=== PATIENT | male | born 1950 | race Caucasian/White ===

== ENCOUNTER → 2016-02-26 | Outpatient (CLI) | payer OTHER ==
[2016-02-26 13:14] LABS: ESTIMATED AVERAGE GLUCOSE 151 mg/dl; HA1C FLAG Normal (Normal)
[2016-02-26 13:39] LABS: ALT/SGPT 26 U/L (12-78); AST/SGOT 19 U/L (15-37); BLOOD UREA NITROGEN 16 mg/dl (7-18); BUN/CREATININE RATIO 15.7 (10-20); CALCIUM 9.3 mg/dl (8.5-10.1); CARBON DIOXIDE 25 mmol/L (21-32); CHLORIDE 105 mmol/L (98-107); CREATININE 0.99 mg/dl (0.60-1.40); GLUCOSE 118 mg/dl (70-99); POTASSIUM 3.9 mmol/L (3.5-5.1); SODIUM 142 mmol/L (136-145)
[2016-02-26 13:46] LABS: ALB/GLOB RATIO 1.2 (0.9-2); ALKALINE PHOSPHATASE 73 U/L (45-117); CHOLESTEROL 220 mg/dl (0-200); CHOLESTEROL/HDL RATIO 3.3; HDL CHOLESTEROL 66 mg/dl; TRIGLYCERIDES 116 mg/dl (0-150); VERY LOW DENSITY LIPOPROT CALC 23 mg/dl
== END | disposition home or self-care (01) ==
LOC: C.LABBFT 07:46
PROVIDERS: ATTEND Family Medicine
DX: I10 Essential (primary) hypertension (principal); R97.20 Elevated prostate specific antigen [PSA]; E11.9 Type 2 diabetes mellitus without complications

== ENCOUNTER → 2016-08-28 | Outpatient (CLI) | payer OTHER ==
[2016-08-28 13:13] LABS: ESTIMATED AVERAGE GLUCOSE 157 mg/dl; HA1C FLAG Normal (Normal)
[2016-08-28 13:15] LABS: ALT/SGPT 24 U/L (12-78); BLOOD UREA NITROGEN 22 mg/dl (7-18); CALCIUM 9.2 mg/dl (8.5-10.1); CARBON DIOXIDE 27 mmol/L (21-32); CHLORIDE 106 mmol/L (98-107); CHOLESTEROL 208 mg/dl (0-200); GLUCOSE 125 mg/dl (70-99); POTASSIUM 4.5 mmol/L (3.5-5.1); SODIUM 139 mmol/L (136-145); TRIGLYCERIDES 99 mg/dl (0-150); VERY LOW DENSITY LIPOPROT CALC 20 mg/dl
[2016-08-28 13:20] LABS: ALB/GLOB RATIO 1.2 (0.9-2); ALKALINE PHOSPHATASE 69 U/L (45-117); AST/SGOT 25 U/L (15-37); CHOLESTEROL/HDL RATIO 3.4; HDL CHOLESTEROL 61 mg/dl
--- NOTE | 2016-09-09 10:39 | CODING QUERY MEDICAL NECESSITY ---
SUPPORTING DIAGNOSIS NEEDED A supporting diagnosis is required for the test/procedure performed on this patient in order for us to be reimbursed by the patient's insurance. Please provide a supporting diagnosis for the following test/procedure listed below next to the test name along with your signature. *If there is no additional diagnosis for this patient that would support the following test/procedure please document that below next to the test/procedure. Test(s)/Procedure(s) that require a supporting diagnosis: * HEMOGLOBIN A1C DIAGNOSIS: Provider Signature: Date: Thank you Dai Corona [employer] Once completed, please kindly fax back to [phone] For questions please call [phone]
== END | disposition home or self-care (01) ==
LOC: C.LABBFT 07:38
PROVIDERS: ATTEND Family Medicine
DX: I10 Essential (primary) hypertension (principal); E78.00 Pure hypercholesterolemia, unspecified; R97.20 Elevated prostate specific antigen [PSA]; E11.9 Type 2 diabetes mellitus without complications

== ENCOUNTER → 2017-03-30 | Outpatient (CLI) | payer OTHER ==
[2017-03-30 13:03] LABS: ALBUMIN 3.8 gm/dl (3.4-5.0); ALT/SGPT 26 U/L (12-78); AST/SGOT 21 U/L (15-37); BLOOD UREA NITROGEN 16 mg/dl (7-18); CARBON DIOXIDE 28 mmol/L (21-32); CREATININE 1.05 mg/dl (0.60-1.40); GLUCOSE 121 mg/dl (70-99); SODIUM 137 mmol/L (136-145)
[2017-03-30 13:08] LABS: HEMOGLOBIN A1C 7.1 % (4.5-5.6)
[2017-03-30 13:10] LABS: ALKALINE PHOSPHATASE 83 U/L (45-117); CHOLESTEROL 215 mg/dl (0-200); LDL CHOLESTEROL (DIRECT) 143 mg/dl; TOTAL PROTEIN 7.6 gm/dl (6.4-8.2)
== END | disposition home or self-care (01) ==
LOC: C.LABBFT 08:41
PROVIDERS: ATTEND Family Medicine
DX: I10 Essential (primary) hypertension (principal); E78.00 Pure hypercholesterolemia, unspecified; R97.20 Elevated prostate specific antigen [PSA]; E11.9 Type 2 diabetes mellitus without complications

== ENCOUNTER 2018-09-22 18:01 | Inpatient (IN) ==
[2018-09-22] MEDS ORDERED: SODIUM CHLORIDE 0.9% 1000ML 2,000 ML IV ONE (18:15)
[2018-09-22] MEDS ORDERED: cefTRIAXone SODIUM 1,000 MG/50 ML BAG IV STA (18:15)
[2018-09-22] MEDS ORDERED: ACETAMINOPHEN 325 MG TAB PO STA (18:15)
--- NOTE | 2018-09-22 18:34 | XRay Report ---
XR chest 1V portable HISTORY: 68 years-old Male Sepsis acute sepsis COMPARISON: Chest radiograph 09/15/2018 TECHNIQUE: Portable AP view of the chest FINDINGS: Cardiomediastinal and hilar silhouettes are within normal limits. No pneumothorax, pleural effusion, focal airspace consolidation or overt pulmonary edema. Degenerative changes of the shoulders and spin e. IMPRESSION: No acute process. The above report was generated using voice recognition software. It may contain grammatical, syntax o r spelling errors. Electronically signed by: Aston Johnson M.D. 09/22/2018 6:32 PM
[2018-09-22 18:40] LABS: Basophils # (auto) 0.01 K/uL (0-0.2); Basophils % (auto) 0.1 %; Eosinophils # (auto) 0.03 K/uL (0-0.5); Eosinophils % (auto) 0.3 %; Hematocrit (blood only) 30.8 % (42-52); Hemoglobin 10.5 g/dL (14.0-18.0); Immature Granulocytes # (auto) 0.04 K/uL (0.00-0.02); Immature Granulocytes % (auto) 0.3 %; Lymphocytes # (auto) 0.64 K/uL (1.2-3.4); Lymphocytes % (auto) 5.6 %; Mean Corpuscular Hgb Conc 34.1 g/dL (32-36); Mean Corpuscular Volume 94.8 fL (80-100); Mean Platelet Volume 9.9 fL (7.4-10.4); Monocytes # (auto) 0.55 K/uL (0.11-0.59); Monocytes % (auto) 4.8 %; Neutrophils # (auto) 10.26 K/uL (1.4-6.5); Neutrophils % (auto) 88.9 %; Platelet Count 166 K/uL (130-400); RDW Coefficient of Variation 12.7 % (11.5-14.5); RDW Standard Deviation 44.1 fL (36.4-46.3); Red Blood Count 3.25 M/uL (4.7-6.1); White Blood Count 11.53 K/uL (4.8-10.8)
[2018-09-22 18:52] LABS: INR 1.1 (0.9-1.1); Partial Thromboplastin Time 27.8 Seconds (21.0-31.0); Prothrombin Time 10.9 Seconds (9.0-12.0)
[2018-09-22 19:02] LABS: Albumin Level 3.5 gm/dl (3.4-5.0); BUN Creatinine Ratio 17.6 (10-20); Calcium 8.8 mg/dl (8.5-10.1); Creatinine Clr Calc Pharmacy 39.6 ml/min; Est GFR (African American) 50.2; Est GFR (Non-African American) 43.3; Potassium 4.1 mmol/L (3.5-5.1)
[2018-09-22 19:04] LABS: Albumin Globulin Ratio 0.8 (0.9-2); Bilirubin,Total 0.7 mg/dl (0.2-1); Globulin 4.3 gm/dl (2.5-4.0); Total Protein 7.8 gm/dl (6.4-8.2)
[2018-09-22 19:06] LABS: Appearance Urine Turbid (Clear); Bacteria Urine Automated 4+ (Negative); Bilirubin Urine Negative (Negative); Blood Urine 3+ (Negative); Color Urine Orange; Epithelial Cell Urine Auto >30 /lpf (0-5); Glucose Urine UA Negative (Negative); Ketones Urine Negative (Negative); Leukocyte Esterase Urine 3+ (Negative); Nitrite Urine Positive (Negative); Protein Urine 2+ (Negative); RBC Urine Automated >30 /hpf (0-4); Urobilinogen Urine Negative (Negative); WBC Urine Automated >30 /hpf (0-5)
[2018-09-22 19:30] LABS: Cast Urine Automated 0 /lpf (0-5)
[2018-09-22] MEDS ORDERED: CEFEPIME 1,000 MG in SYRINGE 0 ML IV STA (20:06)
--- NOTE | 2018-09-22 21:13 | History & Physical Report ---
Date of Service September 22, 2018 Assessment & Plan (1) UTI (urinary tract infection): 68 y/o M Hx HTN, DM II, BPH. The pt has had dysuria and retention since February 2018. He states he has been putting off a TURP which is now scheduled for 09/27. On 09/09 he developed urinary obstruction necessitating Kim placement and on 09/15 he developed a UTI. He completed a course of antibiotics, however, the prior evening he developed a fever and rigors. He was instructed to attend the hospital to receive IV antibiotics by his urologist, who requested coverage for pseudomonas. On review of cultures from 09/15, Gram+ cocci were reported. Specificity and sensitivity are pending. 1) UTI - SIRS - placed on Cefepime initially. Vanc added due to culture results 2) DM II - placed on a SS 3) HTN - cont Lisinopril 4) BPH - consult urology - due for TURP in the coming week Full code SCDs Total time for this admit including review of labs, meds, imaging, records - discussion with pt and ER attending - 35 min Present on Admission?: Yes History of Present Illness Chief Complaint: UTI - recurrent Primary Care Provider: Prateek Herrera 68 y/o M Hx HTN, DM II, BPH. The pt has had dysuria and retention since February 2018. He states he has been putting off a TURP which is now scheduled for 09/27. On 09/09 he developed urinary obstruction necessitating Kim placement and on 09/15 he developed a UTI. He completed a course of antibiotics, however, the prior evening he developed a fever and rigors. He was instructed to attend the hospital to receive IV antibiotics by his urologist, who requested coverage for pseudomonas. On review of cultures from 09/15, Gram+ cocci were reported. Specificity and sensitivity are pending. 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 Family: Noncontributory Allergies Allergy/AdvReac Type Severity Reaction Status Date / Time prednisone AdvReac Unknown light Verified 09/22/18 19:13 headed, photophobia Home Medications Home Medications Medication Instructions Recorded Confirmed Type dutasteride 0.5 mg PO QDL 09/14/18 09/22/18 History ferrous gluconate 236 mg PO QAM 09/14/18 09/22/18 History lisinopril 10 mg PO QAM 09/14/18 09/22/18 History metformin 500 mg PO QDD 09/14/18 09/22/18 History phenazopyridine [Azo Urinary Pain 199 mg PO TID PRN 09/14/18 09/22/18 History Relief] tamsulosin [Flomax] 0.4 mg PO QPM 09/14/18 09/22/18 History Past Med/Surg History Medical History Anemia BPH (benign prostatic hyperplasia) Diabetes mellitus, type 2 NIDDM Kim catheter in place inserted - 09/09/2018; had cysto 09/13/2018; and then replaced; will have voiding trial 09/20/2018 - if failed then will be in until surgery date Gout Hypertension Surgical History History of colonoscopy Hx of dislocation of ankle right ankle - sedated for procedure Hx of tonsillectomy Hx of wisdom tooth extraction Social History Preferred Language: Setswana Communication Ability: Effective Beliefs That Will Affect Care: None Current Living Situation: Spouse Feels Safe at Home: Yes Smoking Status: Never smoker Second Hand Exposure: No Hx Alcohol Use: No Hx Substance Use: No Review of Systems Review of Systems: Gen: Fevers and rigors since prior evening ENT: Denies congestion, throat pain, hearing loss Eyes: Denies acute visual changes CV: Denies CP, palpitations Pulmonary: Denies SOB, cough, wheezing GI: Denies N/V, diarrhea, constipation Neuro: Denies acute or unilateral weakness, acute gait impairment, headache or acute visual changes Musculoskeletal: Denies joint pain, inflammation Endocrine: Denies polydipsia, polyuria Skin: Denies acute rashes or ulcers Physical Exam Physical Exam: General: AAO x 3, no distress ENT: No erythema or exudates, no thrush Eyes: ENRIQUE, EOMI Head and neck: Normocephalic, atraumatic, No JVD, neck is supple. Chest/heart: Nontender, S1,2, RRR, no murmurs, no gallops Lungs: CTAB, no wheezing or crackles Abdomen: Nontender, nondistended, BS+ Neuro: AAO x 3, speech is clear, no unilateral weakness or loss of sensation, coordination intact Musculoskeletal: No joint inflammation, muscle tenderness, FROM Skin: No acute rashes or ulcers Extremities: No clubbing, cyanosis, edema Results & Data Vital Signs (Past 12 Hours) Vital Signs Temp Pulse Pulse Resp BP BP Pulse Ox 09/22/18 20:33 81 21 143/68 H 97 09/22/18 20:18 99.1 F 09/22/18 20:15 85 15 133/66 97 09/22/18 20:00 79 19 139/61 96 09/22/18 19:45 81 21 134/64 97 09/22/18 19:30 84 20 146/68 H 98 09/22/18 19:15 86 20 144/67 H 98 09/22/18 19:00 90 22 138/68 96 09/22/18 18:45 100 H 23 146/75 H 96 09/22/18 18:38 98 H 21 156/73 H 95 09/22/18 18:05 101.3 F H 110 H 20 151/70 H 96 PG Care Time/CCT Total # of Minutes Spent Total Time Spent with Patient: Total time spent is greater than 50% in coordination of care (as documented) at patient's floor/unit and/or counseling patient:
[2018-09-22] MEDS ORDERED: VANCOMYCIN CONSULT ACTIVE PRN ×2 (21:25→22:58)
[2018-09-22] MEDS ORDERED: VANCOMYCIN HCL 1,250 MG in SODIUM CHLORIDE 0.9% 500 ML IV ONE (21:25)
--- NOTE | 2018-09-22 21:59 | Emergency Department Note ---
Entered by Porsche Dominguez acting as a scribe for History of Present Illness General Chief complaint: Urinary Symptoms Stated complaint: FEVER, URINARY SYMPTOMS, REFERRED BY UROLOGIST Source: patient Mode of arrival: ambulatory Limitations: no limitations History of Present Illness Onset (ago): day(s) 1 Location: pelvis (urinary system) Radiation: non-radiation Pain Consistency: + constant Relieved By: + none Exacerbated By: + none Associated symptoms: + other (-abdominal pain, -diarrhea); no nausea/vomiting Treatments prior to arrival: other (Azo) The patient is a 68 year old male who presents to the ED with complaints of urinary symptoms. He states he has a catheter in place for TURP surgery next week due to an enlarged prostate. The catheter has been in place since September 09. Yesterday around 1800, he developed a fever. He has been alternating Tylenol and Advil. He called Dr. Ornelas office and they referred him here to the ED. He complains of dysuria and states his urine has been orange in color. He notes he is currently taking Azo. He denies any abdominal pain, nausea, vomiting or diarrhea. Patient does admit to having shaking chills at home. No chest pain or shortness of breath. Home Medications Home Medications Medication Instructions Recorded Confirmed Type dutasteride 0.5 mg PO QDL 09/14/18 09/22/18 History ferrous gluconate 236 mg PO QAM 09/14/18 09/22/18 History lisinopril 10 mg PO QAM 09/14/18 09/22/18 History metformin 500 mg PO QDD 09/14/18 09/22/18 History phenazopyridine [Azo Urinary Pain 199 mg PO TID PRN 09/14/18 09/22/18 History Relief] tamsulosin [Flomax] 0.4 mg PO QPM 09/14/18 09/22/18 History Allergies Allergy/AdvReac Type Severity Reaction Status Date / Time prednisone AdvReac Unknown light Verified 09/22/18 19:13 headed, photophobia Past Med/Surg History Medical History Anemia BPH (benign prostatic hyperplasia) Diabetes mellitus, type 2 NIDDM Kim catheter in place inserted - 09/09/2018; had cysto 09/13/2018; and then replaced; will have voiding trial 09/20/2018 - if failed then will be in until surgery date Gout Hypertension Surgical History History of colonoscopy Hx of dislocation of ankle right ankle - sedated for procedure Hx of tonsillectomy Hx of wisdom tooth extraction Social History Preferred Language: Vietnamese Communication Ability: Effective Beliefs That Will Affect Care: None Current Living Situation: Spouse Feels Safe at Home: Yes Smoking Status: Never smoker Second Hand Exposure: No Hx Alcohol Use: No Hx Substance Use: No Review of Systems See HPI for pertinent positives & negatives. and A total of 10 systems reviewed and were otherwise negative Physical Exam Vital Signs Vital Signs - 24 hr 09/22/18 18:05 09/22/18 18:38 09/22/18 18:45 Temperature 38.5 C H Temperature Source Oral Sepsis Recent Fever Within 48 Hours No Sepsis New/Unexplained Change in Mental Status No Sepsis Action Taken by Nursing No Action Required Pulse Rate 110 H 100 H Pulse Rate [Finger] 98 H Pulse Rate from SpO2 Sensor 100 H Respiratory Rate 20 21 23 Respiratory Depth Blood Pressure 151/70 H 146/75 H Blood Pressure [Right Arm] 156/73 H Blood Pressure Mean 97 98 Blood Pressure Mean [Right Arm] 100 Pulse Oximetry 96 95 96 Oxygen Delivery Method Room Air Room Air Room Air 09/22/18 19:00 09/22/18 19:15 09/22/18 19:30 Temperature Temperature Source Sepsis Recent Fever Within 48 Hours Sepsis New/Unexplained Change in Mental Status Sepsis Action Taken by Nursing Pulse Rate 90 86 84 Pulse Rate [Finger] Pulse Rate from SpO2 Sensor 90 86 84 Respiratory Rate 22 20 20 Respiratory Depth Blood Pressure 138/68 144/67 H 146/68 H Blood Pressure [Right Arm] Blood Pressure Mean 91 92 94 Blood Pressure Mean [Right Arm] Pulse Oximetry 96 98 98 Oxygen Delivery Method Room Air Room Air Room Air 09/22/18 19:45 09/22/18 20:00 09/22/18 20:15 Temperature Temperature Source Sepsis Recent Fever Within 48 Hours Sepsis New/Unexplained Change in Mental Status Sepsis Action Taken by Nursing Pulse Rate 81 79 85 Pulse Rate [Finger] Pulse Rate from SpO2 Sensor 81 79 84 Respiratory Rate 21 19 15 Respiratory Depth Blood Pressure 134/64 139/61 133/66 Blood Pressure [Right Arm] Blood Pressure Mean 87 87 88 Blood Pressure Mean [Right Arm] Pulse Oximetry 97 96 97 Oxygen Delivery Method Room Air Room Air Room Air 09/22/18 20:18 09/22/18 20:33 09/22/18 21:00 Temperature 37.3 C Temperature Source Oral Sepsis Recent Fever Within 48 Hours Sepsis New/Unexplained Change in Mental Status Sepsis Action Taken by Nursing Pulse Rate Pulse Rate [Finger] 81 Pulse Rate from SpO2 Sensor 82 Respiratory Rate 21 Respiratory Depth Normal Blood Pressure 126/66 Blood Pressure [Right Arm] 143/68 H Blood Pressure Mean 86 Blood Pressure Mean [Right Arm] 93 Pulse Oximetry 97 96 Oxygen Delivery Method Room Air Room Air 09/22/18 21:30 Temperature Temperature Source Sepsis Recent Fever Within 48 Hours Sepsis New/Unexplained Change in Mental Status Sepsis Action Taken by Nursing Pulse Rate 76 Pulse Rate [Finger] Pulse Rate from SpO2 Sensor 76 Respiratory Rate 24 Respiratory Depth Blood Pressure 135/70 Blood Pressure [Right Arm] Blood Pressure Mean 91 Blood Pressure Mean [Right Arm] Pulse Oximetry 97 Oxygen Delivery Method Room Air GENERAL: Patient is alert, standing in room while getting dressed, talking in full sentences, non-toxic EYE EXAM: normal conjunctiva OROPHARYNX: no exudate, no erythema, lips, buccal mucosa, and tongue normal and mucous membranes are moist NECK: supple, no nuchal rigidity, no adenopathy, non-tender LUNGS: Clear to auscultation. Normal chest wall mechanics HEART: Tachycardic heart rate, no murmurs, S1 normal and S2 normal ABDOMEN: abdomen soft, tenderness in suprapubic region, normo-active bowel s ounds, no masses, no rebound or guarding. BACK: Back is symmetrical on inspection and there is no deformity, no midline tenderness, no CVA tenderness. SKIN: no rashes and no bruising UPPER EXTREMITIES: upper extremities are grossly normal. LOWER EXTREMITIES: No pitting edema. NEURO EXAM: Normal sensorium, cranial nerves II-XII grossly intact, normal speech, no gross weakness of arms, no gross weakness of legs. Gross sensation intact. Course ED COURSE: Vital signs were reviewed and showed the patient is hypertensive and tachycardic . The patients medical record was reviewed The above diagnostic studies were performed and reviewed. ED treatments and interventions as stated above. 1810: The patient was evaluated in room C2. A complete history and physical examination was performed. 1944: I discussed the patients case with Dr. Schneider, [facility]. He recommends the patient be further evaluated by the hospital medicine team. 2014: I made Dr. Trujillo, [facility] Hospitalist, aware of the patient. The patient will be further evaluated. 2024: Upon reevaluation, the patient is resting comfortably. I discussed my findings with the patient and he understands and agrees with the treatment plan. Based on the patients age, coexisting illnesses, exam and lab findings the decision to treat as an inpatient was made. The patient remained stable while under my care. The patient will be evaluated for further management. Administered Medications Vancomycin HCl 1,250 mg/ (Sodium Chloride) 525 mls @ 200 mls/hr IV NOW ONE; Protocol Stop: 09/23/18 00:02 Last Admin: 09/22/18 21:48 Dose: 200 mls/hr Documented by: [id number] Discontinued Medications Acetaminophen (Tylenol) 650 mg PO NOW STA Stop: 09/22/18 18:16 Last Admin: 09/22/18 18:34 Dose: 650 mg Documented by: [id number] Ceftriaxone Sodium (Rocephin) 1,000 mg in 50 mls @ 100 mls/hr IV NOW STA Stop: 09/22/18 18:44 Last Infusion: 09/22/18 19:05 Dose: 0 mls/hr Documented by: [id number] Admin: 09/22/18 18:35 Dose: 100 mls/hr Documented by: [id number] Sodium Chloride (Nss 1000ml) 2,000 mls @ 999 mls/hr IV .Q2H1M ONE Stop: 09/22/18 20:15 Last Infusion: 09/22/18 20:26 Dose: 0 mls/hr Documented by: [id number] Admin: 09/22/18 18:25 Dose: 999 mls/hr Documented by: [id number] Cefepime HCl 1,000 mg/ Syringe 11.3 mls @ 5.5 mls/min IV NOW STA; Protocol Stop: 09/22/18 20:08 Last Admin: 09/22/18 20:34 Dose: 5.5 mls/min Documented by: [id number] Medical Decision Making Differential Diagnosis Differential diagnoses includes but is not limited to gastritis, peptic ulcer disease, GERD, gallbladder disease, pancreatitis, small bowel obstruction, acute coronary syndrome, pericarditis, ischemic bowel, irritable bowel disease, irritable bowel syndrome, appendicitis, diverticulitis, malignancy, hernia, urinary tract infection, torsion, perforation, trauma, infectious. Medical Records Attestation: I reviewed the patient's medical records. Home Medications Current Medication List: was personally reviewed by me Laboratory Data Attestation: I reviewed the patient's lab results. Result diagrams: 09/22/18 18:27 09/22/18 18:27 Lab Results 09/22/18 09/22/18 09/22/18 Range/Units 18:27 18:27 18:27 WBC 11.53 H (4.8-10.8) K/uL RBC 3.25 L (4.7-6.1) M/uL Hgb 10.5 L (14.0-18.0) g/dL Hct 30.8 L (42-52) % MCV 94.8 (80-100) fL MCH 32.3 (25-34) pg MCHC 34.1 (32-36) g/dL RDW Std Deviation 44.1 (36.4-46.3) fL RDW Coeff of Percy 12.7 (11.5-14.5) % Plt Count 166 (130-400) K/uL MPV 9.9 (7.4-10.4) fL Immature Gran % (Auto) 0.3 % Neut % (Auto) 88.9 % Lymph % (Auto) 5.6 % [place] % (Auto) 4.8 % Eos % (Auto) 0.3 % Baso % (Auto) 0.1 % Immature Gran # (Auto) 0.04 H (0.00-0.02) K/uL Neut # (Auto) 10.26 H (1.4-6.5) K/uL Lymph # (Auto) 0.64 L (1.2-3.4) K/uL [place] # (Auto) 0.55 (0.11-0.59) K/uL Eos # (Auto) 0.03 (0-0.5) K/uL Baso # (Auto) 0.01 (0-0.2) K/uL PT 10.9 (9.0-12.0) Seconds INR 1.1 (0.9-1.1) APTT 27.8 (21.0-31.0) Seconds PTT Ratio 1.0 Sodium 134 L (136-145) mmol/L Potassium 4.1 (3.5-5.1) mmol/L Chloride 101 (98-107) mmol/L Carbon Dioxide 28 (21-32) mmol/L Anion Gap 5.0 (3-11) BUN 28 H (7-18) mg/dl Creatinine 1.61 H (0.6-1.4) mg/dl Est Cr Clr Drug Dosing 39.6 ml/min Est GFR ( Amer) 50.2 Est GFR (Non-Af Amer) 43.3 BUN/Creatinine Ratio 17.6 (10-20) Glucose 227 H (70-99) mg/dl Lactate (0.4-2.0) mmol/L Calcium 8.8 (8.5-10.1) mg/dl Total Bilirubin 0.7 (0.2-1) mg/dl AST 15 (15-37) U/L ALT 16 (12-78) U/L Alkaline Phosphatase 99 (45-117) U/L Total Protein 7.8 (6.4-8.2) gm/dl Albumin 3.5 (3.4-5.0) gm/dl Globulin 4.3 H (2.5-4.0) gm/dl Albumin/Globulin Ratio 0.8 L (0.9-2) Urine Color Urine Appearance (Clear) Urine pH (4.5-7.5) Ur Specific [place] (1.000-1.030) Urine Protein (Negative) Urine Glucose (UA) (Negative) Urine Ketones (Negative) Urine Blood (Negative) Urine Nitrite (Negative) Urine Bilirubin (Negative) Urine Urobilinogen (Negative) Ur Leukocyte Esterase (Negative) Urine WBC (Auto) (0-5) /hpf Urine RBC (Auto) (0-4) /hpf U Hyaline Cast (Auto) (0-5) /lpf U Epithel Cells (Auto) (0-5) /lpf Urine Bacteria (Auto) (Negative) 09/22/18 09/22/18 Range/Units 18:27 18:50 WBC (4.8-10.8) K/uL RBC (4.7-6.1) M/uL Hgb (14.0-18.0) g/dL Hct (42-52) % MCV (80-100) fL MCH (25-34) pg MCHC (32-36) g/dL RDW Std Deviation (36.4-46.3) fL RDW Coeff of Percy (11.5-14.5) % Plt Count (130-400) K/uL MPV (7.4-10.4) fL Immature Gran % (Auto) % Neut % (Auto) % Lymph % (Auto) % [place] % (Auto) % Eos % (Auto) % Baso % (Auto) % Immature Gran # (Auto) (0.00-0.02) K/uL Neut # (Auto) (1.4-6.5) K/uL Lymph # (Auto) (1.2-3.4) K/uL [place] # (Auto) (0.11-0.59) K/uL Eos # (Auto) (0-0.5) K/uL Baso # (Auto) (0-0.2) K/uL PT (9.0-12.0) Seconds INR (0.9-1.1) APTT (21.0-31.0) Seconds PTT Ratio Sodium (136-145) mmol/L Potassium (3.5-5.1) mmol/L Chloride (98-107) mmol/L Carbon Dioxide (21-32) mmol/L Anion Gap (3-11) BUN (7-18) mg/dl Creatinine (0.6-1.4) mg/dl Est Cr Clr Drug Dosing ml/min Est GFR ( Amer) Est GFR (Non-Af Amer) BUN/Creatinine Ratio (10-20) Glucose (70-99) mg/dl Lactate 1.1 (0.4-2.0) mmol/L Calcium (8.5-10.1) mg/dl Total Bilirubin (0.2-1) mg/dl AST (15-37) U/L ALT (12-78) U/L Alkaline Phosphatase (45-117) U/L Total Protein (6.4-8.2) gm/dl Albumin (3.4-5.0) gm/dl Globulin (2.5-4.0) gm/dl Albumin/Globulin Ratio (0.9-2) Urine Color [place] Urine Appearance Turbid A (Clear) Urine pH 5.0 (4.5-7.5) Ur Specific [place] 1.020 (1.000-1.030) Urine Protein 2+ H (Negative) Urine Glucose (UA) Negative (Negative) Urine Ketones Negative (Negative) Urine Blood 3+ H (Negative) Urine Nitrite Positive A (Negative) Urine Bilirubin Negative (Negative) Urine Urobilinogen Negative (Negative) Ur Leukocyte Esterase 3+ H (Negative) Urine WBC (Auto) >30 H (0-5) /hpf Urine RBC (Auto) >30 H (0-4) /hpf U Hyaline Cast (Auto) 0 (0-5) /lpf U Epithel Cells (Auto) >30 H (0-5) /lpf Urine Bacteria (Auto) 4+ H (Negative) Imaging Data Radiologist's Impression: Radiology results as stated below per my review and the radiologist's interpretation: XR chest 1V portable HISTORY: 68 years-old Male Sepsis acute sepsis COMPARISON: Chest radiograph 09/15/2018 TECHNIQUE: Portable AP view of the chest FINDINGS: Cardiomediastinal and hilar silhouettes are within normal limits. No pneumothorax, pleural effusion, focal airspace consolidation or overt pulmonary edema. Degenerative changes of the shoulders and spine. IMPRESSION: No acute process. The above report was generated using voice recognition software. It may contain grammatical, syntax or spelling errors. Electronically signed by: Aston Johnson M.D. 09/22/2018 6:32 PM Blood Pressure Blood Pressure Findings: Normal blood pressure Blood Pressure Disposition: did not require urgent referral MDM Narrative Patient is a 68-year-old male who presents the ER for shaking chills and fevers which started at home yesterday. Upon presentation is found to be febrile and tachycardic. Sepsis alert was called. He has had a Kim secondary to BPH and is scheduled for surgery this Wednesday. He has had a Kim intermittently out. He has been on no recent antibiotics. IV was established blood work was obtained and showed a mild leukocytosis of 11.5 thousand. Mild anemia 10.5. INR was unremarkable. BMP with mild hyponatremia. Creatinine was slightly elevated 1.61 consistent with last months. LFTs bilirubin and lactate were unremarkable. Glucose was slightly elevated. UA did have nitrates whites and epithelial cells. Did initially cover with Rocephin. Discussed with urology and they recommended Pseudomonas coverage and consequently I gave cefepime and also IV vancomycin per the request of the hospitalist with his previous culture on 09/15 growing out gram-positive cocci although there is less than 7000 present. Patient family were updated bedside discussed the hospitalist for admission. Impression & Plan Sepsis, UTI (urinary tract infection) Discharge Plan Visit Data Chief Complaint: Urinary Symptoms Stated Complaint: FEVER, URINARY SYMPTOMS, REFERRED BY UROLOGIST ED Provider: James Caicedo Discharge Problem: Sepsis, UTI (urinary tract infection) Patient Disposition: Being Evaluated by Hospitalist Forms Stand Alone Forms: My [facility], Important Visit Information Prescriptions Prescriptions: No Action metformin 500 mg Tablet 500 mg PO QDD RF: 0 tamsulosin [Flomax] 0.4 mg Capsule 0.4 mg PO QPM RF: 0 lisinopril 10 mg Tablet 10 mg PO QAM RF: 0 dutasteride 0.5 mg Capsule 0.5 mg PO QDL RF: 0 ferrous gluconate 236 mg (27 mg iron) Tablet 236 mg PO QAM RF: 0 Azo Urinary Pain Relief 99.5 mg Tablet 199 mg PO TID PRN (Reason: Pain with Urination/Burning) RF: 0 Referrals Referrals: Prateek Herrera [Primary Care Provider] - The scribe's documentation has been prepared under my direction and personally reviewed by me in its entirety. I confirm that the note above accurately reflects all work, treatment, procedures, and medical decision making performed by me.
[2018-09-22] MEDS ORDERED: MAGNESIUM HYDROXIDE SUSP 30 ML UDC PO PRN (22:58)
[2018-09-22] MEDS ORDERED: ZOLPIDEM TARTRATE 5 MG TAB PO PRN (22:58)
[2018-09-22] MEDS ORDERED: ONDANSETRON INJ 2 MG/ML 2 ML VIAL IV PRN (22:58)
[2018-09-22] MEDS ORDERED: POLYETHYLENE (MIRALAX) 17 GM PACK PO PRN (22:58)
[2018-09-22] MEDS ORDERED: ALUMINUM/MAGNESIUM SUSP 30 ML UDC PO PRN (22:58)
[2018-09-22] MEDS ORDERED: PHENAZOPYRIDINE HCL 200 MG TAB PO PRN (22:58)
[2018-09-22] MEDS: LACTATED RINGER'S 1,000 ML IV SCH (23:28)
[2018-09-22] MEDS ORDERED: GLUCOSE 40% GEL 15 GM TUBE PO PRN (23:30)
[2018-09-22] MEDS ORDERED: CARBOHYDRATES FOR HYPOGLYCEMIA PO PRN (23:30)
[2018-09-22] MEDS ORDERED: GLUCAGON FOR INJ 1 MG VIAL IM PRN (23:30)
[2018-09-22] MEDS ORDERED: DEXTROSE 50% 50 ML SYRINGE IV PRN (23:30)
[2018-09-22] MEDS ORDERED: GLUCOSE 10 TABS/TUBE PO PRN (23:30)
[2018-09-22] MEDS: INSULIN ASPART 100 UNITS/ML 3 ML PEN SC SCH (23:58)
[2018-09-22] MEDS: TAMSULOSIN HCL 0.4 MG CAP PO SCH (23:59)
[2018-09-23] MEDS: AVODART~ORDER AWAITING ACTION SCH ×3 (00:10→15:37)
--- NOTE | 2018-09-23 05:20 | Pharmacy Report ---
Pharmacy Abx Initial Consult - Date of Service September 23, 2018 - Pharmacy Dosing Scope Date of Consult: 09/22/18 Consultation requested by: Dr. Trujillo Pharmacy is consulted to continue Vancomycin IV dosing therapy started in the ED, order appropriate labs and adjust drug dose/frequency. - Subjective The patient is a 68 year old M admitted on 09/22/18 21:05 with rigors and fever. The pt has history of dysuria and retention since February of this year. He is scheduled for a TURP next week that he admittedly had been putting off. He was instructed by his urologist to go to the hospital to receive IV antibiotics after what seems like failure of ABX (cannot ascertain which one(s) ) from previous 2 weeks. His cultures from 09/15, show Gram+ cocci and new cultures are currently pending. - Objective Height: 5 ft 6 in Weight: 67.132 kg Vital Signs (Past 12hrs): Vital Signs Temp Pulse Pulse Resp BP BP Pulse Ox 09/22/18 22:10 37.0 C 80 20 137/67 95 09/22/18 21:30 76 24 135/70 97 09/22/18 21:00 126/66 96 09/22/18 20:33 81 21 143/68 H 97 09/22/18 20:18 37.3 C 09/22/18 20:15 85 15 133/66 97 09/22/18 20:00 79 19 139/61 96 09/22/18 19:45 81 21 134/64 97 09/22/18 19:30 84 20 146/68 H 98 09/22/18 19:15 86 20 144/67 H 98 09/22/18 19:00 90 22 138/68 96 09/22/18 18:45 100 H 23 146/75 H 96 09/22/18 18:38 98 H 21 156/73 H 95 09/22/18 18:05 38.5 C H 110 H 20 151/70 H 96 Lab Results (24hrs): Laboratory Tests (24 Hours) 09/22/18 09/22/18 18:27 18:27 WBC 11.53 H Neut # (Auto) 10.26 H Creatinine 1.61 H Est Cr Clr Drug Dosing 39.6 Micro Results: 09/22/18 18:50 Urine Culture - Pending Urine,Straight Cath 08/01/19 18:27 Aerobic Blood Culture - Pending Blood Anaerobic Blood Culture - Pending 09/22/18 18:27 Aerobic Blood Culture - Pending Blood Anaerobic Blood Culture - Pending - Risk Factors for Resistance * Antimicrobial use within the last 90 days; unknown of which one(s) - Assessment & Plan Assessment 68 year old M with complicated UTI Plan Vancomycin IV * Estimated PK Parameters: Vd 0.7 L/kg, Dalton 0.037 hr-1, t1/2 18.7 hr * Loading dose: 1250 mg (18.5 mg/kg) * Maintenance dose: 1000mg IV (15 mg/kg) every 20 hours * Goal trough level: 15-20 mcg/mL * Trough level ordered prior to 0800 dose on 09/25/18 Cefepime ordered at 1000mg IV every 8 hours. Per P&T approved policy; adjusted to q12h based on renal function. First dose of 1gm given in ED. Pharmacy will continue to follow and will adjust dose/frequency as necessary. Thank you.
[2018-09-23 07:03] LABS: Creatinine Clr Calc Pharmacy 45.9 ml/min; Est GFR (African American) 59.9; Est GFR (Non-African American) 51.7
[2018-09-23] MEDS: LACTATED RINGER'S 1,000 ML IV SCH ×2 (07:08→15:10)
--- NOTE | 2018-09-23 08:12 | Urology Consultation ---
Date of Consultation September 23, 2018 Assessment & Plan (1) Sepsis: (2) UTI (urinary tract infection): 68yo M presents to [facility] for fevers, BPHx, acute UR with indwelling catheter in place. Awaiting UC&S and BCx results. Continue broad spectrum abx while awaiting culture results. Plan for TURP on 09/27, likely pt may stay inpatient receiving IV abx until day of procedure if agreeable by primary service. Pt tolerating catheter well, no new complaints today. Pt understands current plan of care. Thank you for the consultation, we will continue to follow with primary service. History of Present Illness Reason for Consultation: UTI, BPH, indwelling catheter Requesting Physician: Dr. Beasley Attending Physician: Toney Beasley History of Present Illness 68yo M presents to [facility] for fevers, with indwelling catheter in place. Pt was new to our practice on September 09, for evaluation of LUTS. At that time, he was found to have acute urinary retention requiring indwelling catheter placement and urgency cystoscopy performed by Dr. Bocanegra on 09/13. Found to hav e significant lateral lobe hypertrophy with obstruction, edematous and inflammed bladder, large capacity. He did attempt a voiding trial on 09/20, unsuccessful. Plan for TURP on 09/[address] Bocanegra. He was doing well, tolerating suh catheter until he developed fever a few days ago which resolved spontaneously. When fever/chills resurged last evening, he called our office and we recommended ED evaluation Tmax 38.5C on presentation to ED last evening at 1800. UC&S and BCx pending Pt feeling well at this time. Denies further fever/chills/n/v. Tolerating regular PO diet. Suh intact, draining clear yellow. Denies suprapubic or flank pain. No bladder spams or leaking. Allergies Allergy/AdvReac Type Severity Reaction Status Date / Time prednisone AdvReac Unknown light Verified 09/22/18 19:13 headed, photophobia Home Medications Home Medications Medication Instructions Recorded Confirmed Type dutasteride 0.5 mg PO QDL 09/14/18 09/22/18 History ferrous gluconate 236 mg PO QAM 09/14/18 09/22/18 History lisinopril 10 mg PO QAM 09/14/18 09/22/18 History metformin 500 mg PO QDD 09/14/18 09/22/18 History phenazopyridine [Azo Urinary Pain 199 mg PO TID PRN 09/14/18 09/22/18 History Relief] tamsulosin [Flomax] 0.4 mg PO QPM 09/14/18 09/22/18 History Patient History Medical History Anemia BPH (benign prostatic hyperplasia) Diabetes mellitus, type 2 NIDDM Suh catheter in place inserted - 09/09/2018; had cysto 09/13/2018; and then replaced; will have voiding trial 09/20/2018 - if failed then will be in until surgery date Gout Hypertension Surgical History History of colonoscopy Hx of dislocation of ankle right ankle - sedated for procedure Hx of tonsillectomy Hx of wisdom tooth extraction Social History Preferred Language: Mohawk Communication Ability: Effective Grievance Coordinator Required: No Beliefs That Will Affect Care: None Current Living Situation: Spouse Feels Safe at Home: Yes Smoking Status: Never smoker Second Hand Exposure: No ; Hx Alcohol Use: No Hx Substance Use: No Review of Systems Review of Systems: Constitutional: Denies fever, chills, sweats, malaise Eyes: Denies problem reported ENMT: Denies dizziness Resp: Denies cough, Denies shortness of breath CV: Denies JVD GI: Denies nausea/vomiting : Denies suprapubic or flank pain, dysuria, urgency, frequency, hematuria MS: Denies swelling, stiffness Integ: Denies rash, erythema Neuro: Denies falls, weakness Psych: Denies behavior change Endo: Denies polyphagia, polydipsia Heme: Denies easy bleeding Physical Exam Constitutional: no acute distress and not ill appearing Eyes: no nystagmus ENMT: Ears: no hearing impairment Neck: trachea midline Respiratory: no respiratory distress and no cough Cardiovascular: Vessels: no JVD Chest (Breasts): Chest: normal inspection of chest Gastrointestinal (Abdomen): Inspection/Auscultation: abdomen not distended and no abdominal edema Percussion/Palpation: abdomen soft; abdomen nontender Musculoskeletal: Head/Neck/Chest: normocephalic and head atraumatic Skin: no rashes, warm and dry Neurologic: awake; not confused and not obtunded Psychiatric: Orientation: alert and oriented x 3 Eye Contact: good eye contact Affect: no depressed affect Genitourinary: bladder normal to inspection; no CVA tenderness suh intact, draining clear yellow Lymphatic: no lymphadenopathy and no lymphedema Results & Data Vital Signs (Past 12 Hours) Vital Signs Temp Pulse Pulse Resp BP BP Pulse Ox 09/22/18 22:10 37.0 C 80 20 137/67 95 09/22/18 21:30 76 24 135/70 97 09/22/18 21:00 126/66 96 09/22/18 20:33 81 21 143/68 H 97 09/22/18 20:18 37.3 C 09/22/18 20:15 85 15 133/66 97 (1) Sepsis Sepsis type: sepsis due to unspecified organism Sepsis acute organ dysfunction status: unspecified Qualified Code(s): A41.9 - Sepsis, unspecified organism (2) UTI (urinary tract infection) Hematuria presence: without hematuria Urinary tract infection type: site unspecified Qualified Code(s): N39.0 - Urinary tract infection, site not specified
[2018-09-23] MEDS: CEFEPIME 1,000 MG in SYRINGE 0 ML IV SCH ×2 (08:28→20:19)
[2018-09-23] MEDS: INSULIN ASPART 100 UNITS/ML 3 ML PEN SC SCH ×4 (08:29→21:18)
[2018-09-23] MEDS: LISINOPRIL 10 MG TAB PO SCH (08:30)
[2018-09-23] MEDS: FERROUS GLUCONATE 324 MG TAB PO SCH (08:30)
[2018-09-23] MEDS: VANCOMYCIN HCL 1,000 MG in SODIUM CHLORIDE 0.9% 250 ML IV SCH (15:34)
[2018-09-23] MEDS: ACETAMINOPHEN 325 MG TAB PO PRN (15:37)
[2018-09-23] MEDS: TAMSULOSIN HCL 0.4 MG CAP PO SCH (20:19)
--- NOTE | 2018-09-23 20:51 | Hospitalist Progress Note ---
Date of Service September 23, 2018 Assessment & Plan (1) UTI (urinary tract infection): 68 y/o M Hx HTN, DM II, BPH. The pt has had dysuria and retention since February 2018. He states he has been putting off a TURP which is now scheduled for 09/27. On 09/09 he developed urinary obstruction necessitating Kim placement and on 09/15 he developed a UTI. He completed a course of antibiotics, however, the prior evening he developed a fever and rigors. He was instructed to attend the hospital to receive IV antibiotics by his urologist, who requested coverage for pseudomonas. On review of cultures from 09/15, Gram+ cocci were reported. Specificity and sensitivity are pending. 1) UTI - SIRS - placed on Cefepime initially. Vanc added due to culture results; Will keep current management until final culture results are shown. no fever since admission. 2) DM II - placed on a SS 3) HTN - cont Lisinopril 4) BPH - consult urology - due for TURP in the coming week Full code SCDs Subjective Patient reports feeling well. He has no new complaints. Review of Systems Review of Systems: Gen: no Fevers and rigors since admission ENT: Denies congestion, throat pain, hearing loss Eyes: Denies acute visual changes CV: Denies CP, palpitations Pulmonary: Denies SOB, cough, wheezing GI: Denies N/V, diarrhea, constipation Neuro: Denies acute or unilateral weakness, acute gait impairment, headache or acute visual changes Musculoskeletal: Denies joint pain, inflammation Endocrine: Denies polydipsia, polyuria Skin: Denies acute rashes or ulcers Physical Exam Physical Exam: General: AAO x 3, no distress ENT: No erythema or exudates, no thrush Eyes: ENRIQUE, EOMI Head and neck: Normocephalic, atraumatic, No JVD, neck is supple. Chest/heart: Nontender, S1,2, RRR, no murmurs, no gallops Lungs: CTAB, no wheezing or crackles Abdomen: Nontender, nondistended, BS+ Neuro: AAO x 3, speech is clear, no unilateral weakness or loss of sensation, coordination intact Musculoskeletal: No joint inflammation, muscle tenderness, FROM Skin: No acute rashes or ulcers Extremities: No clubbing, cyanosis, edema Results & Data Vital Signs (Past 12 Hours) Vital Signs Temp Pulse Resp BP Pulse Ox 09/23/18 20:18 37.0 C 09/23/18 11:29 37.2 C 73 16 135/77 98 PG Care Time/CCT Total # of Minutes Spent Total Time Spent with Patient: Total time spent is greater than 50% in coordination of care (as documented) at patient's floor/unit and/or counseling patient: (1) UTI (urinary tract infection) Hematuria presence: without hematuria Urinary tract infection type: site unspecified Qualified Code(s): N39.0 - Urinary tract infection, site not specified
[2018-09-24] MEDS: AVODART~ORDER AWAITING ACTION SCH ×3 (00:08→17:22)
[2018-09-24] MEDS: LACTATED RINGER'S 1,000 ML IV SCH ×3 (01:16→19:01)
[2018-09-24 06:36] LABS: Creatinine Clr Calc Pharmacy 41.4 ml/min; Est GFR (African American) 52.9; Est GFR (Non-African American) 45.7
[2018-09-24] MEDS: LISINOPRIL 10 MG TAB PO SCH (07:55)
[2018-09-24] MEDS: INSULIN ASPART 100 UNITS/ML 3 ML PEN SC SCH ×4 (07:55→21:02)
[2018-09-24] MEDS: CEFEPIME 1,000 MG in SYRINGE 0 ML IV SCH ×2 (07:55→20:14)
[2018-09-24] MEDS: FERROUS GLUCONATE 324 MG TAB PO SCH (07:55)
--- NOTE | 2018-09-24 08:44 | Urology Progress Note ---
Date of Service September 24, 2018 Assessment & Plan (1) Urinary retention: Retention; UTI - needs active treatment until surgery - if possible, continued IV abx through surgery on Wednesday would be ideal - cont catheter - discussed plan with patient - he is comfortable with this plan Subjective urine clear subjectively feeling well, minimal discomfort through the urethra -ambulating - tolerating a diet chronic urinary retention and UTIs - recently evaluated by our service with planned TURP next week - unfortunately, readmitted with a UTI - on IV abx now - appropriate response thus far Review of Systems Constitutional: no fever, no chills and no fatigue Eyes: no worsening vision Ear, Nose, Mouth, Throat: no facial pain and no pain with swallowing Respiratory: no cough and no dyspnea Cardiovascular: no chest pain and no palpitations Gastrointestinal: no abdominal pain, no nausea and no vomiting Genitourinary: + dysuria and + problem reported; no hematuria Musculoskeletal: no back pain Integumentary: no rash and no urticaria Neurologic: no gait abnormality and no unsteadiness Psychiatric: no behavioral changes and no depression Endocrine: no fatigue Physical Exam Physical Exam: urine clear Constitutional: well developed and well nourished Neck: neck nontender Respiratory: normal respiratory effort; no respiratory distress and does not use accessory muscles Cardiovascular: Rate/Rhythm: regular rate Vessels: radial pulses present Extremities: no edema Gastrointestinal (Abdomen): Inspection/Auscultation: abdomen normal to inspection Percussion/Palpation: abdomen soft; abdomen nontender and no guarding Musculoskeletal: Head/Neck/Chest: normocephalic and head atraumatic Extremities: extremities normal to inspection Skin: no rashes and no lesions Trauma: no evidence of skin trauma Neurologic: awake; not obtunded Speech / Cognition: normal speech Motor/Sensory: no tremor Psychiatric: Orientation: alert and oriented x 3 Genitourinary: no CVA tenderness Lymphatic: no lymphadenopathy Results & Data Vital Signs (Past 12 Hours) Vital Signs Temp Pulse Resp BP BP Pulse Ox 09/24/18 07:33 37.3 C 76 20 155/80 H 96 09/23/18 23:32 37.1 C 78 20 138/75 96 PG Care Time/CCT Total # of Minutes Spent Total Time Spent with Patient: Total time spent is greater than 50% in coordination of care (as documented) at patient's floor/unit and/or counseling patient:
[2018-09-24] MEDS: VANCOMYCIN HCL 1,000 MG in SODIUM CHLORIDE 0.9% 250 ML IV SCH (12:39)
[2018-09-24] MEDS: ACETAMINOPHEN 325 MG TAB PO PRN (15:56)
[2018-09-24] MEDS: TAMSULOSIN HCL 0.4 MG CAP PO SCH (20:16)
[2018-09-25] MEDS: AVODART~ORDER AWAITING ACTION SCH ×2 (01:25→08:00)
[2018-09-25] MEDS: LACTATED RINGER'S 1,000 ML IV SCH ×3 (03:25→19:12)
[2018-09-25] MEDS ORDERED: VANCOMYCIN TROUGH ONE (07:30)
[2018-09-25] MEDS: INSULIN ASPART 100 UNITS/ML 3 ML PEN SC SCH ×4 (07:59→20:43)
[2018-09-25] MEDS: CEFEPIME 1,000 MG in SYRINGE 0 ML IV SCH ×2 (07:59→20:43)
[2018-09-25] MEDS: FERROUS GLUCONATE 324 MG TAB PO SCH (08:00)
[2018-09-25] MEDS: LISINOPRIL 10 MG TAB PO SCH (08:00)
[2018-09-25 08:01] LABS: Creatinine Clr Calc Pharmacy 42.8 ml/min; Est GFR (African American) 55.1; Est GFR (Non-African American) 47.5
--- NOTE | 2018-09-25 09:39 | Urology Progress Note ---
Date of Service September 25, 2018 Assessment & Plan (1) Urinary retention: TURP scheduled for Wednesday NPO after MN on Wednesday in prep - cont IV abx Subjective feeling well uneventful night ambulating Physical Exam Physical Exam: NAD AAox3 abd soft urine clear Results & Data Vital Signs (Past 12 Hours) Vital Signs Temp Pulse Resp BP Pulse Ox 09/25/18 07:00 37.3 C 72 20 158/79 H 98 09/24/18 23:42 37.1 C 65 20 151/79 H 97 PG Care Time/CCT Total # of Minutes Spent Total Time Spent with Patient: Total time spent is greater than 50% in assisted living coordinator rdination of care (as documented) at patient's floor/unit and/or counseling patient:
--- NOTE | 2018-09-25 14:59 | Hospitalist Progress Note ---
Date of Service September 25, 2018 Assessment & Plan (1) UTI (urinary tract infection): 68 y/o M Hx HTN, DM II, BPH. The pt has had dysuria and retention since February 2018. He states he has been putting off a TURP which is now scheduled for 09/27. On 09/09 he developed urinary obstruction necessitating Suh placement and on 09/15 he developed a UTI. He completed a course of antibiotics, however, the prior evening he developed a fever and rigors. He was instructed to attend the hospital to receive IV antibiotics by his urologist, who requested coverage for pseudomonas. On review of cultures from 09/15, Gram+ cocci were reported. Specificity and sensitivity are pending. UTI - urine culture growing Klebsiella, sensitive to Cefepime will d/c the Vancomcyin low grade temperature occasionally complete 10-14 days total (2) Urinary retention: due to BPH suh in place plan for TURP which will be definitive treatment (3) BPH (benign prostatic hyperplasia): plan for TURP on 09/27, NPO after midnight tomorrow (4) DM type 2 (diabetes mellitus, type 2): holding metformin continue Novolog SS Subjective patient feeling better overall he admits to some occasional low grade fevers in the afternoon, go away with Tylenol he has no abdominal pain no chest pain, no dyspnea, no cough no nausea, no vomiting, no diarrhea reviewed labs, Cr is stable urine culture shows Klebsiella and almonte sensitive on culture appreciate note from Dr. Bocanegra Review of Systems Review of Systems: All systems reviewed & are unremarkable except as noted in HPI & below Physical Exam Constitutional: WD/WN, vitals as above Eyes: PERRL, conjunctivae normal, anicteric sclerae ENMT: external ear and nose normal, oropharynx normal Neck: trachea midline, no thyromegaly Respiratory: normal respiratory effort, lungs clear to auscultation Cardiovascular: RRR, no murmur, no edema Gastrointestinal (Abdomen): normal bowel sounds, soft, nontender, no hepatosplenomegaly Musculoskeletal: no cyanosis or clubbing, extremities motor strength 5/5 Skin: no rashes, warm and dry Neurologic: patellar DTR's 2+ bilat, sensation intact and PERRL, EOMI, accommodation nl, no face palsy, no dysarthria Psychiatric: A+Ox3, euthymic affect Lymphatic: no cervical or axillary lymphadenopathy Results & Data Vital Signs (Past 12 Hours) Vital Signs Temp Pulse Resp BP Pulse Ox 09/25/18 07:00 37.3 C 72 20 158/79 H 98 Laboratory Results Microbiology 09/22/18 18:27 Blood Aerobic Blood Culture - Preliminary No growth in Aerobic bottle after 48 hours. 09/22/18 18:27 Blood Anaerobic Blood Culture - Preliminary No growth in Anaerobic bottle after 48 hours. 09/22/18 18:27 Blood Aerobic Blood Culture - Preliminary No growth in Aerobic bottle after 48 hours. 09/22/18 18:27 Blood Anaerobic Blood Culture - Preliminary No growth in Anaerobic bottle after 48 hours. 09/22/18 18:50 Urine,Straight Cath Urine Culture - Final Klebsiella pneumoniae Laboratory Results - last 24 hr 09/24/18 09/24/18 09/25/18 17:09 20:50 07:09 Creatinine 1.49 H Est Cr Clr Drug Dosing 42.8 Est GFR ( Amer) 55.1 Est GFR (Non-Af Amer) 47.5 POC Glucose 228 H 276 H Vancomycin Trough 09/25/18 09/25/18 09/25/18 07:09 07:55 12:01 Creatinine Est Cr Clr Drug Dosing Est GFR ( Amer) Est GFR (Non-Af Amer) POC Glucose 171 H 212 H Vancomycin Trough 8.1 Medications Administered Current Inpatient Medications Acetaminophen (Tylenol) 650 mg PO Q4H PRN PRN Reason: pain/fever Stop: 10/22/18 22:57 Last Admin: 09/24/18 15:56 Dose: 650 mg Documented by: Al Hydrox/Mg Hydrox/Simethicone (Maalox) 30 ml PO Q6H PRN PRN Reason: Dyspepsia Stop: 10/22/18 22:57 Dextrose (Dextrose 50%) 25 - 50 ml IV UD PRN; Protocol PRN Reason: Hypoglycemia Protocol Stop: 10/22/18 23:29 Dutasteride (Dutasteride) 1 ea PO DAILY@1200 [facility] Stop: 10/26/18 11:59 Ferrous Gluconate (Ferrous Gluconate) 324 mg PO QAM [facility] Stop: 10/23/18 08:59 Last Admin: 09/25/18 08:00 Dose: 324 mg Documented by: Glucagon (Glucagen) 1 mg IM UD PRN; Protocol PRN Reason: Hypoglycemia Protocol Stop: 10/22/18 23:29 Glucose (Glucose 40%) 15 - 30 gm PO UD PRN; Protocol PRN Reason: Hypoglycemia Protocol Stop: 10/22/18 23:29 Glucose (Dex4 Glucose) 4 - 8 tabs PO UD PRN; Protocol PRN Reason: Hypoglycemia Protocol Stop: 10/22/18 23:29 Lactated Ringer's (Lr) 1,000 mls @ 125 mls/hr IV .Q8H [facility] Stop: 10/22/18 22:57 Last Admin: 09/25/18 11:07 Dose: 125 mls/hr Documented by: Cefepime HCl 1,000 mg/ Syringe 11.3 mls @ 5.5 mls/min IV Q12H [facility]RISTINE; Protocol Stop: 10/03/18 07:59 Last Admin: 09/25/18 07:59 Dose: 5.5 mls/min Documented by: Insulin Aspart (Novolog Flexpen) 0 units SC ACHS [facility] Stop: 10/23/18 00:00 Last Admin: 09/25/18 12:19 Dose: 2 units Documented by: Lisinopril (Zestril) 10 mg PO QAM [facility] Stop: 10/23/18 08:59 Last Admin: 09/25/18 08:00 Dose: 10 mg Documented by: Magnesium Hydroxide (Milk Of Magnesia) 30 ml PO Q6H PRN PRN Reason: Constipation Stop: 10/22/18 22:57 Miscellaneous (Carbohydrates For Hypoglycemia) 15 - 30 gm PO UD PRN PRN Reason: Hypoglycemia Treatment Stop: 10/22/18 23:29 Ondansetron HCl (Zofran) 4 mg IV Q6H PRN PRN Reason: Nausea Stop: 10/22/18 22:57 Phenazopyridine HCl (Pyridium) 200 mg PO TID PRN PRN Reason: Pain with Urination/Burning Stop: 10/22/18 22:57 Polyethylene Glycol (Miralax Powder Packet) 17 gm PO DAILY PRN PRN Reason: Constipation Stop: 10/22/18 22:57 Tamsulosin HCl (Flomax) 0.4 mg PO QPM [facility] Stop: 10/22/18 22:57 Last Admin: 09/24/18 20:16 Dose: 0.4 mg Documented by: Zolpidem Tartrate (Ambien) 5 mg PO HS PRN PRN Reason: Sleep Stop: 10/22/18 22:57 PG Care Time/CCT Total # of Minutes Spent Total Time Spent with Patient: Total time spent is greater than 50% in coordination of care (as documented) at patient's floor/unit and/or counseling patient: (1) UTI (urinary tract infection) Hematuria presence: without hematuria Urinary tract infection type: site unspecified Qualified Code(s): N39.0 - Urinary tract infection, site not specified
[2018-09-25] MEDS: TAMSULOSIN HCL 0.4 MG CAP PO SCH (20:43)
[2018-09-26] MEDS: LACTATED RINGER'S 1,000 ML IV SCH ×2 (03:03→19:11)
[2018-09-26 06:16] LABS: Basophils # (auto) 0.01 K/uL (0-0.2); Basophils % (auto) 0.2 %; Eosinophils # (auto) 0.23 K/uL (0-0.5); Eosinophils % (auto) 4.4 %; Hematocrit (blood only) 30.2 % (42-52); Immature Granulocytes # (auto) 0.04 K/uL (0.00-0.02); Immature Granulocytes % (auto) 0.8 %; Lymphocytes # (auto) 0.94 K/uL (1.2-3.4); Lymphocytes % (auto) 18.1 %; Mean Corpuscular Hgb Conc 33.1 g/dL (32-36); Mean Corpuscular Volume 96.8 fL (80-100); Mean Platelet Volume 9.6 fL (7.4-10.4); Monocytes # (auto) 0.37 K/uL (0.11-0.59); Monocytes % (auto) 7.1 %; Neutrophils # (auto) 3.59 K/uL (1.4-6.5); Neutrophils % (auto) 69.4 %; Platelet Count 172 K/uL (130-400); RDW Coefficient of Variation 12.6 % (11.5-14.5); RDW Standard Deviation 44.7 fL (36.4-46.3); Red Blood Count 3.12 M/uL (4.7-6.1); White Blood Count 5.18 K/uL (4.8-10.8)
[2018-09-26 06:50] LABS: BUN Creatinine Ratio 12.6 (10-20); Calcium 8.9 mg/dl (8.5-10.1); Creatinine Clr Calc Pharmacy 43.4 ml/min; Est GFR (Non-African American) 48.3; Potassium 4.7 mmol/L (3.5-5.1)
[2018-09-26] MEDS: CEFEPIME 1,000 MG in SYRINGE 0 ML IV SCH (08:06)
[2018-09-26] MEDS: FERROUS GLUCONATE 324 MG TAB PO SCH (08:07)
[2018-09-26] MEDS: LISINOPRIL 10 MG TAB PO SCH (08:07)
[2018-09-26] MEDS: INSULIN ASPART 100 UNITS/ML 3 ML PEN SC SCH ×4 (09:05→21:22)
[2018-09-26] MEDS: DUTASTERIDE PO SCH (11:51)
--- NOTE | 2018-09-26 13:53 | Hospitalist Progress Note ---
Date of Service September 26, 2018 Assessment & Plan (1) UTI (urinary tract infection): 68 y/o M Hx HTN, DM II, BPH. The pt has had dysuria and retention since February 2018. He states he has been putting off a TURP which is now scheduled for 09/27. On 09/09 he developed urinary obstruction necessitating Suh placement and on 09/15 he developed a UTI. He completed a course of antibiotics, however, the prior evening he developed a fever and rigors. He was instructed to attend the hospital to receive IV antibiotics by his urologist, who requested coverage for pseudomonas. On review of cultures from 09/15, Gram+ cocci were reported. Specificity and sensitivity are pending. UTI - urine culture growing Klebsiella, sensitive to Cefepime low grade temperature occasionally complete 10-14 days total will change to Keflex on discharge to complete full treatment (2) Urinary retention: due to BPH suh in place plan for TURP which will be definitive treatment TURP on 09/27 (3) BPH (benign prostatic hyperplasia): plan for TURP on 09/27, NPO after midnight tomorrow (4) DM type 2 (diabetes mellitus, type 2): holding metformin continue Novolog SS Subjective patient feeling well wants to go outside, can stop IV fluids plan for TURP tomorrow eating and drinking well Review of Systems Review of Systems: All systems reviewed & are unremarkable except as noted in HPI & below Physical Exam Constitutional: WD/WN, vitals as above Eyes: PERRL, conjunctivae normal, anicteric sclerae ENMT: external ear and nose normal, oropharynx normal Neck: trachea midline, no thyromegaly Respiratory: normal respiratory effort, lungs clear to auscultation Cardiovascular: RRR, no murmur, no edema Gastrointestinal (Abdomen): normal bowel sounds, soft, nontender, no hepatosplenomegaly Musculoskeletal: no cyanosis or clubbing, extremities motor strength 5/5 Skin: no rashes, warm and dry Neurologic: patellar DTR's 2+ bilat, sensation intact and PERRL, EOMI, accommodation nl, no face palsy, no dysarthria Psychiatric: A+Ox3, euthymic affect Lymphatic: no cervical or axillary lymphadenopathy Results & Data Laboratory Results Microbiology 09/22/18 18:27 Blood Aerobic Blood Culture - Preliminary No growth in Aerobic bottle after 48 hours. 09/22/18 18:27 Blood Anaerobic Blood Culture - Preliminary No growth in Anaerobic bottle after 48 hours. 09/22/18 18:27 Blood Aerobic Blood Culture - Preliminary No growth in Aerobic bottle after 48 hours. 09/22/18 18:27 Blood Anaerobic Blood Culture - Preliminary No growth in Anaerobic bottle after 48 hours. 09/22/18 18:50 Urine,Straight Cath Urine Culture - Final Klebsiella pneumoniae Laboratory Results - last 24 hr 09/25/18 09/25/18 09/26/18 16:39 20:26 05:52 WBC 5.18 RBC 3.12 L Hgb 10.0 L Hct 30.2 L MCV 96.8 MCH 32.1 MCHC 33.1 RDW Std Deviation 44.7 RDW Coeff of Percy 12.6 Plt Count 172 MPV 9.6 Immature Gran % (Auto) 0.8 Neut % (Auto) 69.4 Lymph % (Auto) 18.1 [place] % (Auto) 7.1 Eos % (Auto) 4.4 Baso % (Auto) 0.2 Immature Gran # (Auto) 0.04 H Neut # (Auto) 3.59 Lymph # (Auto) 0.94 L Black[place] # (Auto) 0.37 Eos # (Auto) 0.23 Baso # (Auto) 0.01 Sodium Potassium Chloride Carbon Dioxide Anion Gap BUN Creatinine Est Cr Clr Drug Dosing Est GFR ( Amer) Est GFR (Non-Af Amer) BUN/Creatinine Ratio Glucose POC Glucose 153 H 275 H Calcium 09/26/18 09/26/18 09/26/18 05:52 08:24 12:04 WBC RBC Hgb Hct MCV MCH MCHC RDW Std Deviation RDW Coeff of Percy Plt Count MPV Immature Gran % (Auto) Neut % (Auto) Lymph % (Auto) Black[place] % (Auto) Eos % (Auto) Baso % (Auto) Immature Gran # (Auto) Neut # (Auto) Lymph # (Auto) [place] # (Auto) Eos # (Auto) Baso # (Auto) Sodium 140 Potassium 4.7 Chloride 105 Carbon Dioxide 30 Anion Gap 5.0 BUN 19 H Creatinine 1.47 H Est Cr Clr Drug Dosing 43.4 Est GFR ( Amer) 56.0 Est GFR (Non-Af Amer) 48.3 BUN/Creatinine Ratio 12.6 Glucose 150 H POC Glucose 154 H 218 H Calcium 8.9 Medications Administered Current Inpatient Medications Acetaminophen (Tylenol) 650 mg PO Q4H PRN PRN Reason: pain/fever Stop: 10/22/18 22:57 Last Admin: 09/24/18 15:56 Dose: 650 mg Documented by: Al Hydrox/Mg Hydrox/Simethicone (Maalox) 30 ml PO Q6H PRN PRN Reason: Dyspepsia Stop: 10/22/18 22:57 Dextrose (Dextrose 50%) 25 - 50 ml IV UD PRN; Protocol PRN Reason: Hypoglycemia Protocol Stop: 10/22/18 23:29 Dutasteride (Dutasteride) 1 ea PO DAILY@1200 [facility] Stop: 10/26/18 11:59 Last Admin: 09/26/18 11:51 Dose: 1 ea Documented by: Ferrous Gluconate (Ferrous Gluconate) [facility] [place] Stop: 10/23/18 08:59 Last Admin: 09/26/18 08:07 Dose: 324 mg Documented by: Glucagon (Glucagen) 1 mg IM UD PRN; Protocol PRN Reason: Hypoglycemia Protocol Stop: 10/22/18 23:29 Glucose (Glucose 40%) 15 - 30 gm PO UD PRN; Protocol PRN Reason: Hypoglycemia Protocol Stop: 10/22/18 23:29 Glucose (Dex4 Glucose) 4 - 8 tabs PO UD PRN; Protocol PRN Reason: Hypoglycemia Protocol Stop: 10/22/18 23:29 Cefepime HCl 1,000 mg/ Syringe 11.3 mls @ 5.5 mls/min IV Q12H [facility]; Protocol Stop: 10/03/18 07:59 Last Admin: 09/26/18 08:06 Dose: 5.5 mls/min Documented by: Insulin Aspart (Novolog Flexpen) 0 units SC ACHS [facility] Stop: 10/23/18 00:00 Last Admin: 09/26/18 12:07 Dose: 2 units Documented by: Lisinopril (Zestril) 10 mg PO QAM [facility] Stop: 10/23/18 08:59 Last Admin: 09/26/18 08:07 Dose: 10 mg Documented by: Magnesium Hydroxide (Milk Of Magnesia) 30 ml PO Q6H PRN PRN Reason: Constipation Stop: 10/22/18 22:57 Miscellaneous (Carbohydrates For Hypoglycemia) 15 - 30 gm PO UD PRN PRN Reason: Hypoglycemia Treatment Stop: 10/22/18 23:29 Ondansetron HCl (Zofran) 4 mg IV Q6H PRN PRN Reason: Nausea Stop: 10/22/18 22:57 Phenazopyridine HCl (Pyridium) 200 mg PO TID PRN PRN Reason: Pain with Urination/Burning Stop: 10/22/18 22:57 Polyethylene Glycol (Miralax Powder Packet) 17 gm PO DAILY PRN PRN Reason: Constipation Stop: 10/22/18 22:57 Tamsulosin HCl (Flomax) 0.4 mg PO QPM [facility] Stop: 10/22/18 22:57 Last Admin: 09/25/18 20:43 Dose: 0.4 mg Documented by: Zolpidem Tartrate (Ambien) 5 mg PO HS PRN PRN Reason: Sleep Stop: 10/22/18 22:57 PG Care Time/CCT Total # of Minutes Spent Total Time Spent with Patient: Total time spent is greater than 50% in coordination of care (as documented) at patient's floor/unit and/or counseling patient: (1) UTI (urinary tract infection) Hematuria presence: without hematuria Urinary tract infection type: site unspecified Qualified Code(s): N39.0 - Urinary tract infection, site not specified
--- NOTE | 2018-09-26 15:49 | Urology Progress Note ---
Date of Service September 26, 2018 Assessment & Plan (1) Urinary retention: UR, UTI. Remains on antibiotics pending scheduled TURP tomorrow with Dr. Bocanegra. Patient voices good understanding of plan. NPO after midnight. (2) UTI (urinary tract infection): Subjective 68 YO male with UR, UTI. Feeling well today. Kim not bothersome. No fevers/chills. No nausea/vomiting. Review of Systems Review of Systems: All systems reviewed & are unremarkable except as noted in HPI & below Physical Exam Physical Exam: WN/WD NAD. Resp effort normal. No JVD. Abd soft/nontender. : bladder nontender/nondistended; Kim in place, patent, draining clear yellow urine. A&Ox3, appropriate affect. Results & Data Vital Signs (Past 12 Hours) Vital Signs Temp Pulse Resp BP Pulse Ox 09/26/18 15:09 36.8 C 81 16 133/72 96 (1) UTI (urinary tract infection) Hematuria presence: without hematuria Urinary tract infection type: site unspecified Qualified Code(s): N39.0 - Urinary tract infection, site not specified
[2018-09-26] MEDS: TAMSULOSIN HCL 0.4 MG CAP PO SCH (21:21)
[2018-09-26] MEDS: cefTRIAXone SODIUM 2,000 MG in DEXTROSE 5% 50 ML IV SCH (21:21)
[2018-09-27] MEDS: INSULIN ASPART 100 UNITS/ML 3 ML PEN SC SCH ×4 (08:59→21:22)
--- NOTE | 2018-09-27 10:58 | Hospitalist Progress Note ---
Date of Service September 27, 2018 Assessment & Plan (1) UTI (urinary tract infection): 68 y/o M Hx HTN, DM II, BPH. The pt has had dysuria and retention since February 2018. He states he has been putting off a TURP which is now scheduled for 09/27. On 09/09 he developed urinary obstruction necessitating Suh placement and on 09/15 he developed a UTI. He completed a course of antibiotics, however, the prior evening he developed a fever and rigors. He was instructed to attend the hospital to receive IV antibiotics by his urologist, who requested coverage for pseudomonas. On review of cultures from 09/15, Gram+ cocci were reported. Specificity and sensitivity are pending. UTI - urine culture growing Klebsiella, sensitive to Cefepime change to Rocephin and then plan for Keflex on discharge complete 10-14 days total (2) Urinary retention: due to BPH suh in place plan for TURP which will be definitive treatment TURP planned for today (3) BPH (benign prostatic hyperplasia): plan for TURP on 09/27, NPO after midnight tomorrow (4) DM type 2 (diabetes mellitus, type 2): holding metformin continue Novolog SS sugar 170 this morning, instructed RN to hold Novolog since he was NPO Subjective patient feels great, no issues overnight waiting for TURP today was outside yesterday and this morning walking around updated his at the bedside discussed that discharge will really be up to Urology after the procedure Review of Systems Review of Systems: All systems reviewed & are unremarkable except as noted in HPI & below Physical Exam Constitutional: WD/WN, vitals as above Eyes: PERRL, conjunctivae normal, anicteric sclerae ENMT: external ear and nose normal, oropharynx normal Neck: trachea midline, no thyromegaly Respiratory: normal respiratory effort, lungs clear to auscultation Cardiovascular: RRR, no murmur, no edema Gastrointestinal (Abdomen): normal bowel sounds, soft, nontender, no hepatosplenomegaly Musculoskeletal: no cyanosis or clubbing, extremities motor strength 5/5 Skin: no rashes, warm and dry Neurologic: patellar DTR's 2+ bilat, sensation intact and PERRL, EOMI, accommodation nl, no face palsy, no dysarthria Psychiatric: A+Ox3, euthymic affect Lymphatic: no cervical or axillary lymphadenopathy Results & Data Vital Signs (Past 12 Hours) Vital Signs Temp Pulse Resp BP Pulse Ox 09/27/18 07:12 36.7 C 82 17 111/71 96 09/26/18 23:24 36.7 C 66 19 147/68 H 98 Laboratory Results Laboratory Results - last 24 hr 09/26/18 09/26/18 09/26/18 12:04 16:54 20:40 POC Glucose 218 H 171 H 246 H 09/27/18 09/27/18 07:58 09:53 POC Glucose 172 H 172 H Medications Administered Current Inpatient Medications Acetaminophen (Tylenol) 650 mg PO Q4H PRN PRN Reason: pain/fever Stop: 10/22/18 22:57 Last Admin: 09/24/18 15:56 Dose: 650 mg Documented by: Al Hydrox/Mg Hydrox/Simethicone (Maalox) 30 ml PO Q6H PRN PRN Reason: Dyspepsia Stop: 10/22/18 22:57 Dextrose (Dextrose 50%) 25 - 50 ml IV UD PRN; Protocol PRN Reason: Hypoglycemia Protocol Stop: 10/22/18 23:29 Dutasteride (Dutasteride) 1 ea PO DAILY@1200 [facility] Stop: 10/26/18 11:59 Last Admin: 09/26/18 11:51 Dose: 1 ea Documented by: Ferrous Gluconate (Ferrous Gluconate) 324 mg PO QAM [facility] Stop: 10/23/18 08:59 Last Admin: 09/26/18 08:07 Dose: 324 mg Documented by: Glucagon (Glucagen) 1 mg IM UD PRN; Protocol PRN Reason: Hypoglycemia Protocol Stop: 10/22/18 23:29 Glucose (Glucose 40%) 15 - 30 gm PO UD PRN; Protocol PRN Reason: Hypoglycemia Protocol Stop: 10/22/18 23:29 Glucose (Dex4 Glucose) 4 - 8 tabs PO UD PRN; Protocol PRN Reason: Hypoglycemia Protocol Stop: 10/22/18 23:29 Ceftriaxone Sodium 2,000 mg/ (Dextrose) 70 mls @ 140 mls/hr IV DAILY@2100 [facility]; Protocol Stop: 10/03/18 07:59 Last Infusion: 09/26/18 21:51 Dose: Infused Documented by: Insulin Aspart (Novolog Flexpen) 0 units SC ACHS [facility] Stop: 10/23/18 00:00 Last Admin: 09/27/18 08:59 Dose: Not Given Documented by: Lisinopril (Zestril) 10 mg PO QAM [facility] Stop: 10/23/18 08:59 Last Admin: 09/26/18 08:07 Dose: 10 mg Documented by: Magnesium Hydroxide (Milk Of Magnesia) 30 ml PO Q6H PRN PRN Reason: Constipation Stop: 10/22/18 22:57 Miscellaneous (Carbohydrates For Hypoglycemia) 15 - 30 gm PO UD PRN PRN Reason: Hypoglycemia Treatment Stop: 10/22/18 23:29 Ondansetron HCl (Zofran) 4 mg IV Q6H PRN PRN Reason: Nausea Stop: 10/22/18 22:57 Phenazopyridine HCl (Pyridium) 200 mg PO TID PRN PRN Reason: Pain with Urination/Burning Stop: 10/22/18 22:57 Polyethylene Glycol (Miralax Powder Packet) 17 gm PO DAILY PRN PRN Reason: Constipation Stop: 10/22/18 22:57 Tamsulosin HCl (Flomax) 0.4 mg PO QPM [facility] Stop: 10/22/18 22:57 Last Admin: 09/26/18 21:21 Dose: 0.4 mg Documented by: Zolpidem Tartrate (Ambien) 5 mg PO HS PRN PRN Reason: Sleep Stop: 10/22/18 22:57 PG Care Time/CCT Total # of Minutes Spent Total Time Spent with Patient: Total time spent is greater than 50% in coordination of care (as documented) at patient's floor/unit and/or counseling patient: (1) UTI (urinary tract infection) Hematuria presence: without hematuria Urinary tract infection type: site unspecified Qualified Code(s): N39.0 - Urinary tract infection, site not specified
--- NOTE | 2018-09-27 11:46 | History & Physical Bridge Note ---
Date of Service September 27, 2018 History & Physical Bridge Note I have examined the patient, reviewed the History & Physical and in the interval since the performance of the History & Physical I have noted the following changes of clinical significance: no changes noted
--- NOTE | 2018-09-27 13:27 | Operative Report ---
Post Operative Report Pre & Post Diagnosis Operation Date: 09/27/18 11:10 Pre-Op Diagnosis: Urinary Retention Post-Op Diagnosis: Urinary Retention Procedure Operation Date: 09/27/18 11:10 Actual Procedures p Transurethral Resection Prostate(Not Applicable) - Geovany Bocanegra MD Surgeon Glynn Bocanegra MD Airbrush Painter none Estimated Blood Loss 10 Findings Consistent with Post-Op Diagnosis Specimens none Description of Procedure The patient was identified in the preopertive holding area, appropriate informed consents were reviewed and completed and the patient was transferred to the operative suite. Upon arrival, appropriate antibiotics and anesthesia were administered and the patient was placed in dorsal lithotomy position and prepped and draped in sterile fashion. 26 Danish resectoscope was passed per urethra, inspection revealed no stricture disease. He has a large prostate with lateral lobe hypertrophy causing complete obstruction of the urethra. He has a high bladder neck. He has significant edema from a previously placed Kim catheter. Ureteral orifices are identified in orthotopic position. Following my inspection, I replaced the visual obturator with a resecting element using a button electrode. I began by resecting the left lateral lobe followed by the right lateral lobe. I then incised the bladder neck at 5 and 7:00 and dropped the bladder neck. I concluded my resection by trimming the apical tissues on the left and the right as well as a small amount of redundant anterior tissue. I repeatedly checked my resection to ensure all redundant tissue was treated. There was excellent hemostasis. I left the bladder full and withdrew the scope. I placed a 22 Danish Kim without difficulty and co ncluded the case. He was extubated and taken to the PACU in stable condition. I attest to the content of the Intraoperative Record and any orders documented therein. Any exceptions are noted below.
[2018-09-27] MEDS ORDERED: ATROPINE SULFATE 0.1 MG/ML 10ML SYR IV PRN (14:14)
[2018-09-27] MEDS ORDERED: ePHEDrine sulfate 50 MG/ML AMP IV PRN (14:14)
[2018-09-27] MEDS: FERROUS GLUCONATE 324 MG TAB PO SCH (14:32)
[2018-09-27] MEDS: LISINOPRIL 10 MG TAB PO SCH (14:32)
[2018-09-27] MEDS: DUTASTERIDE PO SCH (14:32)
--- NOTE | 2018-09-27 14:57 | Anesthesiology Progress Note ---
Date of Service September 27, 2018 Anesthesia Post Procedure Vital Signs Vital Signs: Temp Pulse Pulse Resp BP BP Pulse Ox 09/27/18 14:28 36.6 C 67 20 117/69 96 09/27/18 14:09 36.5 C 66 14 118/66 96 09/27/18 13:59 69 14 123/74 97 09/27/18 13:49 70 16 125/73 96 09/27/18 13:39 73 16 111/80 96 09/27/18 13:29 72 16 131/72 96 09/27/18 13:19 36.2 C L 71 16 138/73 98 09/27/18 11:16 36.5 C 77 18 129/82 98 09/27/18 07:12 36.7 C 82 17 111/71 96 09/26/18 23:24 36.7 C 66 19 147/68 H 98 09/26/18 15:09 36.8 C 81 16 133/72 96 Transfer of Care Handoff Completed per policy Notes Mental Status: alert / awake / arousable and participated in evaluation Patient Amnestic to Procedure: Yes Nausea / Vomiting: adequately controlled Pain: adequately controlled Airway Patency, RR, SpO2: stable & adequate BP & HR: stable & adequate Hydration State: stable & adequate Anesthetic Complications: no major complications apparent and Pt Satisfied with anesthetic care
[2018-09-27] MEDS: TAMSULOSIN HCL 0.4 MG CAP PO SCH (21:23)
[2018-09-27] MEDS: cefTRIAXone SODIUM 2,000 MG in DEXTROSE 5% 50 ML IV SCH (22:06)
[2018-09-28] MEDS: FERROUS GLUCONATE 324 MG TAB PO SCH (07:53)
[2018-09-28] MEDS: LISINOPRIL 10 MG TAB PO SCH (07:53)
--- NOTE | 2018-09-28 08:26 | Urology Progress Note ---
Date of Service September 28, 2018 Assessment & Plan (1) Urinary retention: Postop day #1 status post TURP Voiding trial today Presuming he voids, he can be discharged home from our standpoint He had positive Klebsiella infection on arrivalI would likely convert him to Bactrim for 10 additional days of therapy Subjective Recovering appropriately from his TURP yesterday Minimal discomfort He was slightly dizzy after anesthesia yesterday and this morning, but gradually improving Physical Exam Physical Exam: Mild hematuria Abdomen soft Comfortable appearing Results & Data Vital Signs (Past 12 Hours) Vital Signs Temp Pulse Resp BP BP Pulse Ox 09/28/18 07:10 36.9 C 99 H 20 110/58 L 100 09/27/18 23:00 36.7 C 70 21 107/59 L 98 PG Care Time/CCT Total # of Minutes Spent Total Time Spent with Patient: Total time spent is greater than 50% in coordination of care (as documented) at patient's floor/unit and/or counseling patient:
[2018-09-28] MEDS: INSULIN ASPART 100 UNITS/ML 3 ML PEN SC SCH ×2 (08:52→13:18)
--- NOTE | 2018-09-28 10:10 | Discharge Summary ---
Date of Service September 28, 2018 Admission HPI Per Admitting Provider 68 y/o M Hx HTN, DM II, BPH. The pt has had dysuria and retention since February 2018. He states he has been putting off a TURP which is now scheduled for 09/27. On 09/09 he developed urinary obstruction necessitating Suh placement and on 09/15 he developed a UTI. He completed a course of antibiotics, however, the prior evening he developed a fever and rigors. He was instructed to attend the hospital to receive IV antibiotics by his urologist, who requested coverage for pseudomonas. On review of cultures from 09/15, Gram+ cocci were reported. Specificity and sensitivity are pending. 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 Avid jogger. Family: Noncontributory Principal Diagnosis Klebsiella UTI due to urinary retention Discharge Exam Constitutional WD/WN, vitals as above Eyes PERRL, conjunctivae normal, anicteric sclerae ENMT external ear and nose normal, oropharynx normal Neck trachea midline, no thyromegaly Respiratory normal respiratory effort, lungs clear to auscultation Cardiovascular RRR, no murmur, no edema Gastrointestinal (Abdomen) normal bowel sounds, soft, nontender, no hepatosplenomegaly Musculoskeletal no cyanosis or clubbing, extremities motor strength 5/5 Skin no rashes, warm and dry Neurologic patellar DTR's 2+ bilat, sensation intact and PERRL, EOMI, accommodation nl, no face palsy, no dysarthria Psychiatric A+Ox3, euthymic affect Lymphatic no cervical or axillary lymphadenopathy Discharge Data Allergies Allergy/AdvReac Type Severity Reaction Status Date / Time prednisone AdvReac Unknown light Verified 09/27/18 11:11 headed, photophobia Consultations 09/22/18 20:32 ED Decision to Admit Stat 09/22/18 21:50 Consult Urology Routine Procedures Performed Operation Date: 09/27/18 11:10 Actual Procedures p Transurethral Resection Prostate(Not Applicable) - Geovany Bocanegra MD Hospital Course (1) UTI (urinary tract infection): 68 y/o M Hx HTN, DM II, BPH. The pt has had dysuria and retention since February 2018. He states he has been putting off a TURP which is now scheduled for 09/27. On 09/09 he developed urinary obstruction necessitating Suh placement and on 09/15 he developed a UTI. He completed a course of antibiotics, however, the prior evening he developed a fever and rigors. He was instructed to attend the hospital to receive IV antibiotics by his urologist, who requested coverage for pseudomonas. On review of cultures from 09/15, Gram+ cocci were reported. Specificity and sensitivity are pending. UTI - urine culture growing Klebsiella, sensitive to Cefepime change to Rocephin and then plan for Bactrim on discharge complete 10 more days of Bactrim no fever, WBC normal, eating well, no UTI symptoms (2) Urinary retention: due to BPH TURP done on 09/27 tolerated well suh pulled on 09/28 in the morning, d/c to home after he voided follow up with Dr. Bocanegra in two weeks in the office (3) BPH (benign prostatic hyperplasia): s/p TURP on 09/27 will continue Flomax and Dutasteride until he sees Dr. Bocanegra (4) DM type 2 (diabetes mellitus, type 2): holding metformin continue Novolog SS can resume Metformin on discharge Total Time Total Time Spent Total Time Spent (In Minutes): 33 minutes Total Time Includes: Examination of the Patient, Discharge Planning, Medication Reconciliation, Communication With Other Providers (discussed with Dr. Bocanegra) and Other (discussed with patient's ) Discharge Plan Discharge Items Patient Disposition: Home - Self-Care Reason For Visit: UTI FAILED THERAPY Discharge Diagnosis: Klebsiella UTI BPH with urinary retention, s/p TURP Condition: Good Discharge Goals: Decrease discomfort and Improve function Activity: Per 'Additional Instructions' section Lifting: No more than 5 pounds Bathing: No limitations Sexual Activity: Wait until after follow-up appointment Exercise/Sports: Gradually increase as tolerated Driving/Machine Use: Resume 1 day after discharge Non-emergency contact: Primary Care Provider and Urologist Call non-emergency contact if: you have any medication questions, your symptoms worsen, your pain is not controlled and you have a fever Follow-up/Referrals: Prateek Herrera [Primary Care Provider] - Diet: Carb Consistent or DM2 Addtl Provider Instructions: Medications: - BACTRIM DS: take one table twice a day for 10 more days, first dose due this evening - ULTRAM: only fill if you have significant pain, can use Tylenol and/or Motrin if pain is mild UTI, Klebsiella culture show infection is almonte-sensitive treated initially with IV antibiotics, now can use Bactrim per directions of Dr. Bocanegra take for 10 more days BPH, s/p TURP with Dr. Bocanegra continue on Flomax and Dutasteride for 2 more weeks until you see Dr. Bocanegra in the office follow up with Dr. Bocanegra in two weeks please call his office to schedule appt Prescriptions: New sulfamethoxazole-trimethoprim [Bactrim DS] 800-160 mg tablet 1 tab PO BID 10 Days Qty: 20 RF: 0 tramadol [Ultram] 50 mg tablet 50 mg PO Q8H PRN (Reason: pain) Qty: 10 RF: 0 Continued metformin 500 mg Tablet 500 mg PO QDD RF: 0 tamsulosin [Flomax] 0.4 mg Capsule 0.4 mg PO QPM RF: 0 lisinopril 10 mg Tablet 10 mg PO QAM RF: 0 dutasteride 0.5 mg Capsule 0.5 mg PO QDL RF: 0 ferrous gluconate 236 mg (27 mg iron) Tablet 236 mg PO QAM RF: 0 Azo Urinary Pain Relief 99.5 mg Tablet 199 mg PO TID PRN (Reason: Pain with Urination/Burning) RF: 0 Stand-Alone Forms: [facility] Discharge Orders: Discharge Order (Routine); Ordered 09/28/18 Ordered By: Mick Hatch Admission Data Admit Date/Time: 09/22/18 21:05 Attending Provider: Mick Hatch Admit Provider: Wade Trujillo Primary Care Provider: Prateek Herrera Other Providers: Wade Trujillo ; Xavier Jeffery II Service: Medical
--- NOTE | 2018-09-28 10:35 | Anesthesiology Progress Note ---
Date of Service September 28, 2018 Anesthesia Post Procedure Vital Signs Vital Signs: Temp Pulse Pulse Resp BP BP Pulse Ox 09/28/18 07:10 36.9 C 99 H 20 110/58 L 100 09/27/18 23:00 36.7 C 70 21 107/59 L 98 09/27/18 14:28 36.6 C 67 20 117/69 96 09/27/18 14:09 36.5 C 66 14 118/66 96 09/27/18 13:59 69 14 123/74 97 09/27/18 13:49 70 16 125/73 96 09/27/18 13:39 73 16 111/80 96 09/27/18 13:29 72 16 131/72 96 09/27/18 13:19 36.2 C L 71 16 138/73 98 09/27/18 11:16 36.5 C 77 18 129/82 98 Notes Mental Status: alert / awake / arousable and participated in evaluation Nausea / Vomiting: adequately controlled Pain: adequately controlled Airway Patency, RR, SpO2: stable & adequate BP & HR: stable & adequate Hydration State: stable & adequate
[2018-09-28] MEDS: DUTASTERIDE PO SCH (13:18)
--- NOTE | 2018-09-29 13:20 | Coding Query ---
CODING QUERY To promote full compliance with coding requirements relating to patient care, provider participation is requested in all cases of castings trimmer uncertainty. Please assist us with the question(s) below: Coding Question(s): Sepsis was documented eariler in the record but not followed through on the discharge summary. Please clairfy the diagnosis of sepsis below Physician's Response(s): ( x ) Sepsis ( x) POA ( ) Not POA ( ) Sepsis Ruled Out ( ) Other: (Please Specify) Thank you Kristal Sutherland Principal Diagnosis: "that condition established after study, to be chiefly responsible for occasioning the admission of the patient to the hospital for care." Co-Existing Principal Diagnosis: "when two or more diagnoses equally meet the criteria for principal diagnosis as determined by the circumstances of admission, diagnostic work up, and/or therapy provided, and the Alphabetic Index, Tabular List, or another coding guideline does not provide sequencing direction, any one of the diagnoses may be sequenced first." "When the physician has documented what appears to be a current diagnosis in the body of the record, but has not included the diagnosis in the final diagnostic statement, the physician should be asked whether the diagnosis should be added." (Source [facility] 2 QTR90. p3-4) [place]
== END 2018-09-28 16:54 | disposition home or self-care (01) | DRG 854 ==
LOC: ED 18:01 → 4W 21:05 → SUATTDRO 21:05 → 4W 22:03